=== PATIENT | male | born 1965 | race Caucasian/White ===

== ENCOUNTER 2019-10-10 08:59 | Day surgery (SDC) | payer OTHER ==
[~2019-10-10 08:59] MED LIST: Lactated Ringers 1,000 ML IV SCH; Lidocaine 1%/Sod Bicarbonate in NS 8.4% 1 ML Syringe IDERM PRN; Sodium Chloride 0.9% 10 ML Syringe FLUSH PRN
--- NOTE | 2019-10-10 09:29 | PCM.PREANE ---
Preanesthetic Assessment - Anesthesia/Transfusion/Family Hx Anesthesia History: Prior Anesthesia Without Reaction Family History of Anesthesia Reaction: No Transfusion History: No Prior Transfusion(s) - Review of Systems General: No Symptoms Pulmonary: No Symptoms Cardiovascular: No Symptoms Gastrointestinal: No Symptoms, Nausea Other: Reports: None - Physical Assessment NPO Status Date: 10/09/19 NPO Status Time: 22:00 ASA Class: 2 Mental Status: Alert & Oriented x3 Airway Class: Mallampati = 3 Dentition: Reports: Normal Dentition Thyro-Mental Finger Breadths: 3 Mouth Opening Finger Breadths: 2 ROM/Head Extension: Full Lungs: Clear to Auscultation, Normal Respiratory Effort Cardiovascular: Regular Rate, Regular Rhythm - Lab Values: Laboratory Last Values COVID-19 PCR Not detected (NOT DETECT) 10/08/19 10:00 - Allergies Allergies/Adverse Reactions: Allergies Allergy/AdvReac Type Severity Reaction Status Date / Time No Known Allergies Allergy Verified 10/09/19 14:22 - Acknowledgements Anesthesia Type Planned: MAC Pt an Appropriate Candidate for the Planned Anesthesia: Yes Alternatives and Risks of Anesthesia Discussed w Pt/Guardian: Yes Pt/Guardian Understands and Agrees with Anesthesia Plan: Yes PreAnesthesia Questionnaire HEENT History: Reports: Impaired Vision Cardiovascular History: Reports: High Cholesterol, Hypertension, SOB on Exertion Respiratory History: Reports: Sleep Apnea, Other (See Below) Other Respiratory History: not using cpap or bipap therapy at this time Gastrointestinal History: Reports: Cholelithiasis, Diverticulosis, GERD Genitourinary History: Reports: None [employer] History: Reports: None Musculoskeletal History: Reports: None Neurological History: Reports: None Psychiatric History: Reports: Depression Endocrine/Metabolic History: Reports: Diabetes, Type II, Hypothyroidism Hematologic History: Reports: None Immunologic History: Reports: None Oncologic (Cancer) History: Reports: None Dermatologic History: Reports: None - Past Surgical History Head Surgeries/Procedures: Reports: None HEENT Surgical History: Reports: Eye Surgery Cardiovascular Surgical History: Reports: None Respiratory Surgical History: Reports: None GI Surgical History: Reports: Other (See Below) Other GI Surgeries/Procedures: intestinal surgery Female Surgical History: Reports: None Male Surgical History: Reports: None Endocrine Surgical History: Reports: None Neurological Surgical History: Reports: None Musculoskeletal Surgical History: Reports: None Oncologic Surgical History: Reports: None Dermatological Surgical History: Reports: None - SUBSTANCE USE Smoking Status *Q: Current Every Day Smoker Days Per Week of Alcohol Use: 3 Number of Drinks Per Day: 4 Total Drinks Per Week: 12 Recreational Drug Use History: No - HOME MEDS Home Medications: Home Meds Aspirin [Aspir 81] 81 mg PO DAILY 10/09/19 [History] FLUoxetine [PROzac] 10 mg PO DAILY 10/09/19 [History] amLODIPine Besylate [Norvasc] 10 mg PO DAILY 10/09/19 [History] atorvaSTATin [Lipitor] 80 mg PO DAILY 10/09/19 [History] glipiZIDE [Glipizide Xl] 10 mg PO DAILY 10/09/19 [History] lisinopriL [Lisinopril] 20 mg PO DAILY 10/09/19 [History] metFORMIN [Glucophage] 1,000 mg PO DAILY 10/09/19 [History] - CURRENT (IN HOUSE) MEDS Current Meds: Current Medications Lactated Ringer's (Ringers, Lactated) 1,000 mls @ 125 mls/hr IV ASDIRECTED BELEN Stop: 10/10/19 23:00 Lidocaine/Sodium Bicarbonate (Buffered Lidocaine 1% In Ns 8.4%) 0.25 ml IDERM ONETIME PRN PRN Reason: Prior to IV Start Stop: 10/10/19 18:00 Sodium Chloride (Saline Flush) 10 ml FLUSH ASDIRECTED PRN PRN Reason: Keep Vein Open Stop: 10/10/19 18:00
[2019-10-10] MEDS ORDERED: Lidocaine 1% 4 ML ONE (10:10)
[2019-10-10] MEDS ORDERED: Propofol 200 MG/20 ML SDV ONE ×2 (10:10→10:23)
--- NOTE | 2019-10-10 10:53 | PCM.OPNOTE ---
- General Post-Op/Procedure Note Date of Surgery/Procedure: 10/10/19 Operative Procedure(s): colonoscopy Findings: 1. Cecal polyp 2. Transverse colon polyp x3 3. Descending colon polyp 4. Rectal polyp Pre Op Diagnosis: hematochezia Post-Op Diagnosis: same Anesthesia Technique: MAC Primary Surgeon: Shaneka Damico Anesthesia Provider: Shaniqua Kahn Pathology: 1. Cecal polyp 2. Transverse colon polyp x3 3. Descending colon polyp 4. Rectal polyp Fluid Replacement, Intraop: 700 Output, Urine Amount: 0 EBL in mLs: 0 Complications: none apparent Condition: Good
--- NOTE | 2019-10-10 10:54 | PCM.PRNOTE ---
- Free Text/Narrative Note: Operative Report Date of Surgery/Procedure: October 10, 2019 Operative Procedure: Colonoscopy to cecum with polypectomy Pre Op Diagnosis: Hematochezia Post-Op Diagnosis: Same Surgeon: Shaneka Damico MD Plating Technician: Shannan Jones [id number] Anesthesia Technique: MAC Anesthesia Provider: Shaniqua Kahn CRNA IV Fluid Replacement, Intraop: 700cc Output, Urine Amount: 0cc EBL : 0cc Findings: 1. Cecal polyp 2. Transverse colon polyp x3 3. Descending colon polyp 4. Rectal polyp Specimens: 1. Cecal polyp 2. Transverse colon polyp x3 3. Descending colon polyp 4. Rectal polyp Indication: The patient is a 54 year-old gentleman who presented to the outpatient clinic with findings of hematochezia. We discussed the procedure of a diagnostic colonoscopy including the polypectomy and biopsy. Risks of bleeding and perforation were discussed, the patient understood and wished to proceed. Written and consent was obtained Description of the procedure: The patient was brought to the endoscopy suite and placed in the left lateral decubitus position. Appropriate monitors were applied. The patient was given MAC anesthesia. An anorectal examination was performed, revealing no external abnormality. The scope was placed into the rectum and advanced to cecum with minimal difficulty requiring no additional maneuvers. The patients cecum was entered, and the ileocecal valve and appendiceal orifice were identified and normal. At this point, the scope was withdrawn, paying careful attention to the mucosa. The patient had good bowel prep, allowing for visualization of 85-90 % of the mucosa after washing and suctioning. A cecal polyp was noted measuring approximately 11 mm. It was semi-pedunculated. This was removed using a hot snare. In the transverse colon there was a meter semi-pedunculated polyp removed with a hot snare. There were 2 additional 3 to 4 mm flat polyps in the transverse colon that removed using a jumbo cold biopsy forceps. A 4 mm my pedunculated polyp was noted in the descending colon and removed with the hot snare. In the rectum, the scope was retroflexed and no abnormalities were noted, except for some hemorrhoidal tissue. The scope was placed back in the lumen and a pedunculated 3 mm polyp was seen in the rectum. This was removed using a jumbo biopsy forceps. The excess air was aspirated and the procedure was terminated. The patient tolerated the procedure well. Complications: none apparent Condition: Good, transported to PACU in stable condition Shaneka Damico MD General Surgery
--- NOTE | 2019-10-10 10:59 | PCM48HPAN ---
Post Anesthesia Note - EVALUATION WITHIN 48HRS OF ANESTHETIC Vital Signs in Normal Range: Yes Patient Participated in Evaluation: Yes Respiratory Function Stable: Yes Airway Patent: Yes Cardiovascular Function Stable: Yes Hydration Status Stable: Yes Pain Control Satisfactory: Yes Nausea and Vomiting Control Satisfactory: Yes Mental Status Recovered: Yes Vital Signs: Last Vital Signs Temp 36.3 C 10/10/19 09:00 Pulse 68 10/10/19 09:00 Resp 16 10/10/19 09:00 BP 142/88 H 10/10/19 09:00 Pulse Ox 95 10/10/19 09:00
== END 2019-10-10 11:28 | disposition home or self-care (01) ==
LOC: JD.SDS 08:59
PROVIDERS: ATTEND Surgery
DX: D12.0 Benign neoplasm of cecum (principal); D12.3 Benign neoplasm of transverse colon; K62.1 Rectal polyp; K64.8 Other hemorrhoids; Z11.59 Encounter for screening for other viral diseases; E11.9 Type 2 diabetes mellitus without complications; E78.5 Hyperlipidemia, unspecified; F17.200 Nicotine dependence, unspecified, uncomplicated; I10 Essential (primary) hypertension; E78.00 Pure hypercholesterolemia, unspecified; Z79.899 Other long term (current) drug therapy; Z79.82 Long term (current) use of aspirin
CPT/HCPCS: 45380; 45385; 82962; 87635; J2001; J2704; J7120; 00811; U0002

== ENCOUNTER 2019-10-10 22:31 | Inpatient (IN) | payer OTHER ==
[2019-10-10] MEDS ORDERED: Ondansetron 4 MG/2 ML SDV IVPUSH ONE (23:16)
[2019-10-10] MEDS ORDERED: HYDROmorphone 1 MG/ML Syringe IVPUSH ONE (23:16)
--- NOTE | 2019-10-10 23:16 | EDM.PDOC ---
ED HPI GENERAL MEDICAL PROBLEM - General Chief Complaint: Abdominal Pain Stated Complaint: RIGHT SIDE PAIN-HAD A COLONOSCOPY TODAY Time Seen by Provider: 10/10/19 23:09 Source of Information: Reports: Patient History Limitations: Reports: No Limitations - History of Present Illness INITIAL COMMENTS - FREE TEXT/NARRATIVE: 54-year-old male presents to the ED for evaluation of right kimberly-abdominal pain primarily right lower quadrant abdominal pain that started about 1400 hrs. today. He states it is gradually increased in intensity over the last 8 hours. Of note the patient had a colonoscopy earlier this morning in our hospital per Dr. Miller. He believes ,he was told that she removed 1 or 2 polyps or did some biopsies. He feels slightly bloated and distended. He did pass a lot of gas per rectum initially after getting home around noon. He did have a lot of food at noon as he was starving after he was kept n.p.o. overnightand had bowel cleanse prep yesterday. He has had previous colon surgery? about 10 years ago spending 2 months in hospital. He apparently did have a 6 inch piece of colon removed to his knowledge and then developed secondary infection or breakdown of the anastomosis. He spent 1 month in the hospital initially but came back the following day with abdominal pain and spent another month in hospital. This was in [place].At present abdominal pain is much worse with coughing ,sneezing or walking. He admits that he is walking slow and stooped over like an appendicitis patient. Onset: Today Onset Date: 10/10/19 Onset Time: 14:00 Duration: Hour(s):, Constant, Getting Worse Location: Reports: Abdomen (Right lower quadrant of the abdomen rating up towards the right costal margin. No pain in his back.) Quality: Reports: Ache Severity: Moderate (Rates his pain is 7 or 8 out of 10. 4 out of 10 if he is lying still.) Improves with: Reports: Rest Worsens with: Reports: Other Context: Reports: Other (Presents to the ED 19 hours post colonoscopy). Denies: Activity (Meant coughing sneezing or laughing makes the pain worse), Exercise, Lifting, Sick Contact Associated Symptoms: Reports: No Other Symptoms, Loss of Appetite (And eat any supper.). Denies: Confusion, Chest Pain, Cough, cough w sputum, Headaches, Malaise Treatments TIMBER SELECTOR: Reports: Other (see below) (None.) Right Lower Abdomen Pain Score (Numeric/FACES): 8 - Related Data Allergies Allergy/AdvReac Type Severity Reaction Status Date / Time No Known Allergies Allergy Verified 10/09/19 14:22 Home Meds: Home Meds Aspirin [Aspir 81] 81 mg PO DAILY 10/09/19 [History] FLUoxetine [PROzac] 10 mg PO DAILY 10/09/19 [History] amLODIPine Besylate [Norvasc] 10 mg PO DAILY 10/09/19 [History] atorvaSTATin [Lipitor] 80 mg PO DAILY 10/09/19 [History] glipiZIDE [Glipizide Xl] 10 mg PO DAILY 10/09/19 [History] lisinopriL [Lisinopril] 20 mg PO DAILY 10/09/19 [History] metFORMIN [Glucophage] 1,000 mg PO DAILY 10/09/19 [History] Past Medical History HEENT History: Reports: Impaired Vision Cardiovascular History: Reports: High Cholesterol, Hypertension, SOB on Exertion Respiratory History: Reports: Sleep Apnea, Other (See Below) Other Respiratory History: not using cpap or bipap therapy at this time Gastrointestinal History: Reports: Cholelithiasis, Diverticulosis, GERD Genitourinary History: Reports: None 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: Reports: None Musculoskeletal History: Reports: None Neurological History: Reports: None Psychiatric History: Reports: Depression Endocrine/Metabolic History: Reports: Diabetes, Type II (Trolled with metformin and glipizide daily.), Hypothyroidism Hematologic History: Reports: None Immunologic History: Reports: None Oncologic (Cancer) History: Reports: None Dermatologic History: Reports: None - Past Surgical History Head Surgeries/Procedures: Reports: None HEENT Surgical History: Reports: Eye Surgery Cardiovascular Surgical History: Reports: None Respiratory Surgical History: Reports: None GI Surgical History: Reports: Other (See Below) Other GI Surgeries/Procedures: intestinal surgery--he states it was for colon surgery but unclear if he meant small bowel surgery. Male Surgical History: Reports: None Endocrine Surgical History: Reports: None Neurological Surgical History: Reports: None Musculoskeletal Surgical History: Reports: None Oncologic Surgical History: Reports: None Dermatological Surgical History: Reports: None Social & Family History - Tobacco Use Smoking Status *Q: Never Smoker - Caffeine Use Caffeine Use: Reports: Soda - Living Situation & Occupation Living situation: Reports: Single Occupation: Employed (Works in [employer] ED ROS GENERAL - Review of Systems Review Of Systems: See Below Constitutional: Reports: Decreased Appetite (Mild since the pain came on.). Denies: Fever, Chills, Malaise, Weakness, Fatigue, Weight Loss HEENT: Reports: Glasses Respiratory: Denies: Shortness of Breath, Wheezing, Pleuritic Chest Pain Cardiovascular: Reports: Blood Pressure Problem. Denies: Claudication, Dyspnea on Exertion, Edema, Lightheadedness, Orthopnea ED EXAM, GI/ABD - Physical Exam Exam: See Below Exam Limited By: No Limitations General Appearance: Alert, WD/WN, No Apparent Distress, Other (Temperature is 36.3 heart rate is 85 and sinus respiratory to 16 BP 184 108. Pulse ox 98% on room air.) Eyes: Bilateral: Normal Appearance (No blepharal pallor or scleral icterus.) Throat/Mouth: Normal Inspection, Normal Lips, Normal Oropharynx Head: Atraumatic, Normocephalic Neck: Normal Inspection, Supple, Non-Tender, Full Range of Motion. No: Carotid Bruit, Lymphadenopathy (L), Lymphadenopathy (R), Thyromegaly Respiratory/Chest: No Respiratory Distress, Lungs Clear, Normal Breath Sounds, No Accessory Muscle Use Cardiovascular: Normal Peripheral Pulses, Regular Rate, Rhythm, No Edema, No Gallop, No Murmur, No Rub GI/Abdominal Exam: Normal Bowel Sounds, Soft, Guarding ( This is over McBurney's point primarily.), Rebound, Tender (Very tender right lower quadrant abdomen with guarding and rebound with peritoneal signs.), Other (Old midline infraumbilical vertical incision). No: Non-Tender, Abnormal Bowel Sounds (Right lower quadrant of the abdomen.), Hernia (Male) Exam: No Hernia Back Exam: Normal Inspection. No: CVA Tenderness (L), CVA Tenderness (R) Extremities: Normal Inspection, Normal Range of Motion, Non-Tender, No Pedal Edema Neurological: Alert, Oriented, CN II-XII Intact, Normal Cognition Psychiatric: Normal Affect, Normal Mood Skin Exam: Warm, Dry, Intact, Normal Color, No Rash Course - Vital Signs Last Recorded V/S: Last Vital Signs Temp 36.3 C 10/10/19 22:50 Pulse 85 10/10/19 22:50 Resp 16 10/10/19 22:50 BP 184/108 H 10/10/19 22:50 Pulse Ox 98 10/10/19 22:50 - Orders/Labs/Meds Orders: Active Orders 24 hr Category Date Time Status Patient Status [ADT] Routine ADT 10/11/19 06:36 Active Abdomen Pelvis w Cont [CT] Stat Exams 10/10/19 23:10 Taken CORONAVIRUS COVID-19 RAPID [MOLEC] Stat Lab 10/11/19 06:21 Received Lactated Ringers [Ringers, Lactated] 1,000 ml Med 10/10/19 23:15 Active IV ASDIRECTED Medication Orders Lactated Ringer's (Ringers, Lactated) 1,000 mls @ 125 mls/hr IV ASDIRECTED BELEN Last Admin: 10/10/19 23:22 Dose: 125 mls/hr Documented by: KEVIN Labs: Laboratory Tests 10/10/19 10/10/19 10/11/19 Range/Units 23:20 23:20 05:30 WBC 13.92 H 15.32 H (4.23-9.07) K/mm3 RBC 5.23 4.84 (4.63-6.08) M/mm3 Hgb 16.6 15.4 (13.7-17.5) gm/dl Hct 47.5 44.2 (40.1-51.0) % MCV 90.8 91.3 (79.0-92.2) fl MCH 31.7 31.8 (25.7-32.2) pg MCHC 34.9 34.8 (32.2-35.5) g/dl RDW Std Deviation 42.7 43.2 (35.1-43.9) fL Plt Count 323 300 (163-337) K/mm3 MPV 9.9 10.1 (9.4-12.3) fl Neutrophils % (Manual) 80 H 71 H (40-60) % Band Neutrophils % 3 6 (0-10) % Lymphocytes % (Manual) 11 L 13 L (20-40) % Atypical Lymphs % 0 0 % Monocytes % (Manual) 5 9 (2-10) % Eosinophils % (Manual) 1 0 L (0.8-7.0) % Basophils % (Manual) 0 L 1 (0.2-1.2) Platelet Estimate Adequate Adequate Plt Morphology Comment Normal Normal RBC Morph Comment Normal Normal Sodium 137 (136-145) mEq/L Potassium 3.7 (3.5-5.1) mEq/L Chloride 100 (98-107) mEq/L Carbon Dioxide 31 (21-32) mEq/L Anion Gap 9.7 (5-15) BUN 12 (7-18) mg/dL Creatinine 1.2 (0.7-1.3) mg/dL Est Cr Clr Drug Dosing TNP Estimated GFR (MDRD) > 60 (>60) mL/min BUN/Creatinine Ratio 10.0 L (14-18) Glucose 332 H (74-106) mg/dL Calcium 8.6 (8.5-10.1) mg/dL Total Bilirubin 0.4 (0.2-1.0) mg/dL AST 11 L (15-37) U/L ALT 29 (16-63) U/L Alkaline Phosphatase 107 (46-116) U/L C-Reactive Protein 0.8 (<1.0) mg/dL Total Protein 7.4 (6.4-8.2) g/dl Albumin 3.6 (3.4-5.0) g/dl Globulin 3.8 gm/dL Albumin/Globulin Ratio 1.0 (1-2) Lipase 175 (73-393) U/L 07/30/20 Range/Units 05:30 WBC (4.23-9.07) K/mm3 RBC (4.63-6.08) M/mm3 Hgb (13.7-17.5) gm/dl Hct (40.1-51.0) % MCV (79.0-92.2) fl MCH (25.7-32.2) pg MCHC (32.2-35.5) g/dl RDW Std Deviation (35.1-43.9) fL Plt Count (163-337) K/mm3 MPV (9.4-12.3) fl Neutrophils % (Manual) (40-60) % Band Neutrophils % (0-10) % Lymphocytes % (Manual) (20-40) % Atypical Lymphs % % Monocytes % (Manual) (2-10) % Eosinophils % (Manual) (0.8-7.0) % Basophils % (Manual) (0.2-1.2) Platelet Estimate Plt Morphology Comment RBC Morph Comment Sodium (136-145) mEq/L Potassium (3.5-5.1) mEq/L Chloride (98-107) mEq/L Carbon Dioxide (21-32) mEq/L Anion Gap (5-15) BUN (7-18) mg/dL Creatinine (0.7-1.3) mg/dL Est Cr Clr Drug Dosing Estimated GFR (MDRD) (>60) mL/min BUN/Creatinine Ratio (14-18) Glucose (74-106) mg/dL Calcium (8.5-10.1) mg/dL Total Bilirubin (0.2-1.0) mg/dL AST (15-37) U/L ALT (16-63) U/L Alkaline Phosphatase (46-116) U/L C-Reactive Protein 3.6 H* (<1.0) mg/dL Total Protein (6.4-8.2) g/dl Albumin (3.4-5.0) g/dl Globulin gm/dL Albumin/Globulin Ratio (1-2) Lipase (73-393) U/L Meds: Medications Generic Name Dose Route Start Last Admin Trade Name Freq PRN Reason Stop Dose Admin Lactated Ringer's 1,000 mls @ 125 mls/hr 10/10/19 23:15 10/10/19 23:22 Ringers, Lactated IV 125 mls/hr ASDIRECTED BELEN Administration Discontinued Medications Generic Name Dose Route Start Last Admin Trade Name Breezyq PRN Reason Stop Dose Admin Hydromorphone HCl 1 mg 10/10/19 23:16 10/10/19 23:25 Dilaudid IVPUSH 10/10/19 23:17 1 mg ONETIME ONE Administration Hydromorphone HCl 1 mg 10/11/19 01:38 10/11/19 01:56 Dilaudid IVPUSH 10/11/19 01:39 1 mg ONETIME ONE Administration Hydromorphone HCl 1 mg 10/11/19 06:27 Dilaudid IVPUSH 10/11/19 06:28 ONETIME ONE Ertapenem 1 gm/ Sodium 50 mls @ 100 mls/hr 10/11/19 01:40 10/11/19 01:53 Chloride IV 10/11/19 02:09 100 mls/hr ONETIME ONE Administration Lorazepam 0.5 mg 10/11/19 01:38 10/11/19 01:54 Ativan IVPUSH 10/11/19 01:39 0.5 mg ONETIME ONE Administration Ondansetron HCl 4 mg 10/10/19 23:16 10/10/19 23:24 Zofran IVPUSH 10/10/19 23:17 4 mg ONETIME ONE Administration Ondansetron HCl 4 mg 10/11/19 06:27 Zofran IVPUSH 10/11/19 06:28 ONETIME ONE - Radiology Interpretation Free Text/Narrative:: 54-year-old male presents to the ED approximate 19 hours after having colonoscopy this morning. He states he was discharged about noon and went home and did eat a large meal of corn dog hotdogs and other foods. He was starving since he was kept n.p.o. and after bowel cleanse yesterday. About 1400 hrs. he started to develop diffuse right lower quadrant abdominal pain which has progressed in intensity over the last 8 to 10 hours. Pain is worsened by movement coughing laughing and sneezing. He reports he is walking hunched over and slowly due to the pain. He was able to place his lap belt on his across his abdomen in route to the hospital. Of note patient does not feel he is passing any flatus for the last 8 or 10 hours. Previous laparotomy for he reports a: Obstruction or infection. Apparently had 6.0 inches of bowel removed and was hospitalized for over a month. Discharged within 2 days he was back and hospitalized for another month due to infection. He is not sure if he had a small or large bowel obstruction. Of note he has had no previous abdominal surgeries. He denies any fever or chills. He is reports he still has a mild appetite. He has not eaten since noon however. Examination reveals suspect peritonitis right lower quadrant of the abdomen with guarding throughout the right kimberly-abdomen. Plan CT of the abdomen will be performed with IV and oral contrast. Routine labs. He is to be kept n.p.o. CBC with differential to be done with CMP and CRP and serum lipase. IV will be lactated Ringer's at 150 mils per hour - Re-Assessments/Exams Free Text/Narrative Re-Assessment/Exam: 10/11/19 01:14 Count is elevated at 13.92 with 80% neutrophils and 3% bands appreciated. Hemoglobin is 16.6 with a hematocrit of 47.5. Platelet count is 323,000. Sodium is 137 with a potassium of 3.7. Chloride 100 with a bicarb of 31. Anion gap is 9.7. BUN is 12 with a creatinine of 1.2. GFR is greater than 60. Glucose is 332 of note patient is a type II diabetic. Calcium is 8.6. Liver function is normal. C-reactive protein 0.8. Total protein 7.4 with an albumin fraction of 3.[address] of the abdomen has been completed with oral and IV contrast. Visualized portions of the lungs appear normal. No cardiomegaly appreciated. There is no obvious free air on my examination. Li viola appears homogeneous and normal. Gallbladder contains a few calcified gallstones in the fundus of the gallbladder. Pancreas appears normal spleen appears normal stomach appears normal with a small hiatal hernia. Kidneys are normal with no obstruction of the ureters. Adrenal glands normal. The small bowel contains a few air-fluid levels in the upper abdomen. Their is a fair amount of stool throughout the right hemicolon and portions of the transverse colon. The appendix is visualized and is enlarged and elongated with I suspect verey subtle early silviano appendyceal inflammation silviano appendyceal inflammation to suggest developing appendicitis. Bladder appears to be filling adequately and normally. Prostate appears to be within normal limits for his age. Will await Vrad report. 10/11/19 01:22 Vrad over read of the abdominal and pelvic CT reveals the suspect cholelithiasis as indicated above. They too ,did not identify any free air. They feel the appendix is normal in the right lower quadrant and they appreciate extensive colonic diverticulosis but no signs of acute diverticulitis or appendicitis on their reading. 10/11/19 01:26: On reexamination patient still has an acute abdomen localizing to McBurney's point. Sounds are present and he appreciates that he has passed some flatus. Clinically he appears to be suffering from acute appendicitis. He is mildly tender in the right upper quadrant but maximal point of tenderness with peritoneal signs is in the right lower quadrant. He has associated guarding right lower quadrant and rebound tenderness I am going to get him a treatment with Invanz 1 g IV now. Plan will be to have repeat labs in 5 hours time with repeat imaging if deemed necessary. Surgical consult will be obtained at 0600 hrs. Medically the patient feels warm to palpation and I suspect he is developing a fever. Reports pain is constant worsened by deep breathing and coughing. Appreciates passage of flatus since arrival in the ED. Currently rates his pain as 4-5 out of 10 at rest. Plan :Repeat temperature. Will repeat his Dilaudid 1 mg IV and Ativan 0.5 mg IV so that he might get some rest. 10/11/19 01:50: Repeat temperature was reported to be 98.9. 10/11/19 04:48 seems staff reports that he has been dozing off and on. He woke and was feeling quite hot and nurses therefore got him a fan. The room that he is in is actually quite warm. Signs remained stable. Sats are 94 to 96% room air. 10/11/19 05:36 [address] did speak with Dr. Vela- on-call surgeon and he will see the patient in the ED when he comes in for appendectomy on another patient at 0600 hrs. 10/11/19 06:10: Dr Vela has seen the patient in consultation. He is going to admit the patient to the hospital at this time. 10/11/19 06:20: On my reassessment the patient has continued peritoneal signs in the right lower quadrant compel with the patient acute appendicitis. Patient reports that the pain is constant and worsens with any movement at all. He re ports if he holds really still the pain is not too bad. Mild associated nausea. Plan will repeat Dilaudid 1 mg IV with Zofran 4 mg IV as well. P labs were drawn around 0530 hrs. but are not yet available. 10/11/19 06:40 Repeat labs reveal an increase in leukocyte count to 15.32 with 71% neutrophils and 6% bands cells. Hemoglobin is 15.4 with a hematocrit of 44.2 which is a slight decrease from initial labs. This is likely secondary to IV fluid dilution. CRP has gone up from 0.8-3.6 at this time. Departure - Departure Time of Disposition: 06:41 Disposition: Refer to Observation Condition: Fair Clinical Impression: Cholelithiasis Abdominal pain Qualifiers: Abdominal location: right lower quadrant Qualified Code(s): R10.31 - Right lower quadrant pain Acute appendicitis Qualifiers: Acute appendicitis type: with localized peritonitis Appendicitis gangrene presence: without gangrene Appendicitis perforation presence: without perforation Appendicitis abscess presence: without abscess Qualified Code(s): K35.30 - Acute appendicitis with localized peritonitis, without perforation or gangrene - Discharge Information *PRESCRIPTION DRUG MONITORING PROGRAM REVIEWED*: Not Applicable *COPY OF PRESCRIPTION DRUG MONITORING REPORT IN PATIENT [place]: Not Applicable Referrals: Shaneka Damico MD [Physician] - Forms: ED Department Discharge Sepsis Event Note (ED) - Evaluation Sepsis Screening Result: No Definite Risk - Focused Exam Vital Signs: Vital Signs Temp Pulse Resp BP Pulse Ox 10/10/19 22:50 36.3 C 85 16 184/108 H 98 - My Orders Last 24 Hours: My Active Orders 10/10/19 23:10 Abdomen Pelvis w Cont [CT] Stat 10/10/19 23:15 Lactated Ringers [Ringers, Lactated] 1,000 ml IV ASDIRECTED 10/11/19 06:21 CORONAVIRUS COVID-19 RAPID [MOLEC] Stat 10/11/19 06:36 Patient Status [ADT] Routine - Assessment/Plan Last 24 Hours: My Active Orders 10/10/19 23:10 Abdomen Pelvis w Cont [CT] Stat 10/10/19 23:15 Lactated Ringers [Ringers, Lactated] 1,000 ml IV ASDIRECTED 10/11/19 06:21 CORONAVIRUS COVID-19 RAPID [MOLEC] Stat 10/11/19 06:36 Patient Status [ADT] Routine
[2019-10-10] MEDS: Lactated Ringers 1,000 ML IV SCH (23:22)
[2019-10-11] MEDS ORDERED: HYDROmorphone 1 MG/ML Syringe IVPUSH ONE ×2 (01:38→06:27)
[2019-10-11] MEDS ORDERED: LORazepam 2 MG/ML SDV IVPUSH ONE (01:38)
[2019-10-11] MEDS ORDERED: Ertapenem 1 GM in Sodium Chloride 0.9% 50 ML IV ONE (01:40)
[2019-10-11] MEDS ORDERED: Ondansetron 4 MG/2 ML SDV IVPUSH ONE (06:27)
--- NOTE | 2019-10-11 06:39 | PCM.HP.2 ---
H&P History of Present Illness - General Date of Service: 10/11/19 Source of Information: Patient History Limitations: Reports: No Limitations - History of Present Illness Initial Comments - Free Text/Narative: patient had a colonoscopy yesterday by Dr. Pollack. He reports that he had polypectomy. He started having right sided abdominal pain around 2 pm. pain was sharp, localized in thr RLQ, worse with mobility, no fevers, no nausea or vomiting. Since the pain was worsening, he presented to the ED. In the ED, WBC was 15, CT was done that appears normal but on my review there may be mild stranding at the proximal ascending colon. Onset of Symptoms: Reports: Gradual Duration of Symptoms: Reports: Hour(s): (166), Getting Worse Location: Reports: Abdomen (RLQ) Quality: Reports: Sharp Severity: Severe Improves with: Reports: Immobilization Worsens with: Reports: Movement Associated Symptoms: Reports: No Other Symptoms Right Lower Abdomen Pain Score (Numeric/FACES): 8 - Related Data Allergies/Adverse Reactions: Allergies Allergy/AdvReac Type Severity Reaction Status Date / Time No Known Allergies Allergy Verified 10/09/19 14:22 Home Medications: Home Meds Aspirin [Aspir 81] 81 mg PO DAILY 10/09/19 [History] FLUoxetine [PROzac] 10 mg PO DAILY 10/09/19 [History] amLODIPine Besylate [Norvasc] 10 mg PO DAILY 10/09/19 [History] atorvaSTATin [Lipitor] 80 mg PO DAILY 10/09/19 [History] glipiZIDE [Glipizide Xl] 10 mg PO DAILY 10/09/19 [History] lisinopriL [Lisinopril] 20 mg PO DAILY 10/09/19 [History] metFORMIN [Glucophage] 1,000 mg PO DAILY 10/09/19 [History] Past Medical History HEENT History: Reports: Impaired Vision Cardiovascular History: Reports: High Cholesterol, Hypertension, SOB on Exertion Respiratory History: Reports: Sleep Apnea, Other (See Below) Other Respiratory History: not using cpap or bipap therapy at this time Gastrointestinal History: Reports: Cholelithiasis, Diverticulosis, GERD Genitourinary History: Reports: None [employer] History: Reports: None Musculoskeletal History: Reports: None Neurological History: Reports: None Psychiatric History: Reports: Depression Endocrine/Metabolic History: Reports: Diabetes, Type II (Trolled with metformin and glipizide daily.), Hypothyroidism Hematologic History: Reports: None Immunologic History: Reports: None Oncologic (Cancer) History: Reports: None Dermatologic History: Reports: None - Past Surgical History Head Surgeries/Procedures: Reports: None HEENT Surgical History: Reports: Eye Surgery Cardiovascular Surgical History: Reports: None Respiratory Surgical History: Reports: None GI Surgical History: Reports: Other (See Below) Other GI Surgeries/Procedures: intestinal surgery--he states it was for colon surgery but unclear if he meant small bowel surgery. Male Surgical History: Reports: None Endocrine Surgical History: Reports: None Neurological Surgical History: Reports: None Musculoskeletal Surgical History: Reports: None Oncologic Surgical History: Reports: None Dermatological Surgical History: Reports: None Social & Family History - Tobacco Use Smoking Status *Q: Never Smoker - Caffeine Use Caffeine Use: Reports: Soda - Living Situation & Occupation Living situation: Reports: Single Occupation: Employed (Works in [employer] H&P Review of Systems - Review of Systems: Review Of Systems: See Below General: Reports: No Symptoms HEENT: Reports: No Symptoms Pulmonary: Reports: No Symptoms Cardiovascular: Reports: No Symptoms Gastrointestinal: Reports: Abdominal Pain (RLQ) Genitourinary: Reports: No Symptoms Musculoskeletal: Reports: No Symptoms Skin: Reports: No Symptoms Psychiatric: Reports: No Symptoms Exam - Exam Exam: See Below - Vital Signs Vital Signs: Last Vital Signs Temp 97.4 F 10/10/19 22:50 Pulse 85 10/10/19 22:50 Resp 16 10/10/19 22:50 BP 184/108 H 10/10/19 22:50 Pulse Ox 98 10/10/19 22:50 - Exam General: Alert, Oriented, Cooperative Lungs: Clear to Auscultation, Normal Respiratory Effort Cardiovascular: Regular Rate, Regular Rhythm, Normal S1, Normal S2 GI/Abdominal Exam: Soft, No Organomegaly, No Distention, No Mass, Tender (RLQ with focal rebound tenderness) - Patient Data Lab Results Last 24 hrs: Laboratory Results - last 24 hr 10/10/19 10/10/19 10/11/19 Range/Units 23:20 23:20 05:30 WBC 13.92 H 15.32 H (4.23-9.07) K/mm3 RBC 5.23 4.84 (4.63-6.08) M/mm3 Hgb 16.6 15.4 (13.7-17.5) gm/dl Hct 47.5 44.2 (40.1-51.0) % MCV 90.8 91.3 (79.0-92.2) fl MCH 31.7 31.8 (25.7-32.2) pg MCHC 34.9 34.8 (32.2-35.5) g/dl RDW Std Deviation 42.7 43.2 (35.1-43.9) fL Plt Count 323 300 (163-337) K/mm3 MPV 9.9 10.1 (9.4-12.3) fl Neutrophils % (Manual) 80 H 71 H (40-60) % Band Neutrophils % 3 6 (0-10) % Lymphocytes % (Manual) 11 L 13 L (20-40) % Atypical Lymphs % 0 0 % Monocytes % (Manual) 5 9 (2-10) % Eosinophils % (Manual) 1 0 L (0.8-7.0) % Basophils % (Manual) 0 L 1 (0.2-1.2) Platelet Estimate Adequate Adequate Plt Morphology Comment Normal Normal RBC Morph Comment Normal Normal Sodium 137 (136-145) mEq/L Potassium 3.7 (3.5-5.1) mEq/L Chloride 100 (98-107) mEq/L Carbon Dioxide 31 (21-32) mEq/L Anion Gap 9.7 (5-15) BUN 12 (7-18) mg/dL Creatinine 1.2 (0.7-1.3) mg/dL Est Cr Clr Drug Dosing TNP Estimated GFR (MDRD) > 60 (>60) mL/min BUN/Creatinine Ratio 10.0 L (14-18) Glucose 332 H (74-106) mg/dL Calcium 8.6 (8.5-10.1) mg/dL Total Bilirubin 0.4 (0.2-1.0) mg/dL AST 11 L (15-37) U/L ALT 29 (16-63) U/L Alkaline Phosphatase 107 (46-116) U/L C-Reactive Protein 0.8 (<1.0) mg/dL Total Protein 7.4 (6.4-8.2) g/dl Albumin 3.6 (3.4-5.0) g/dl Globulin 3.8 gm/dL Albumin/Globulin Ratio 1.0 (1-2) Lipase 175 (73-393) U/L 10/11/19 Range/Units 05:30 WBC (4.23-9.07) K/mm3 RBC (4.63-6.08) M/mm3 Hgb (13.7-17.5) gm/dl Hct (40.1-51.0) % MCV (79.0-92.2) fl MCH (25.7-32.2) pg MCHC (32.2-35.5) g/dl RDW Std Deviation (35.1-43.9) fL Plt Count (163-337) K/mm3 MPV (9.4-12.3) fl Neutrophils % (Manual) (40-60) % Band Neutrophils % (0-10) % Lymphocytes % (Manual) (20-40) % Atypical Lymphs % % Monocytes % (Manual) (2-10) % Eosinophils % (Manual) (0.8-7.0) % Basophils % (Manual) (0.2-1.2) Platelet Estimate Plt Morphology Comment RBC Morph Comment Sodium (136-145) mEq/L Potassium (3.5-5.1) mEq/L Chloride (98-107) mEq/L Carbon Dioxide (21-32) mEq/L Anion Gap (5-15) BUN (7-18) mg/dL Creatinine (0.7-1.3) mg/dL Est Cr Clr Drug Dosing Estimated GFR (MDRD) (>60) mL/min BUN/Creatinine Ratio (14-18) Glucose (74-106) mg/dL Calcium (8.5-10.1) mg/dL Total Bilirubin (0.2-1.0) mg/dL AST (15-37) U/L ALT (16-63) U/L Alkaline Phosphatase (46-116) U/L C-Reactive Protein 3.6 H* (<1.0) mg/dL Total Protein (6.4-8.2) g/dl Albumin (3.4-5.0) g/dl Globulin gm/dL Albumin/Globulin Ratio (1-2) Lipase (73-393) U/L Result Diagrams: 10/11/19 05:30 10/10/19 23:20 Sepsis Event Note - Evaluation Sepsis Screening Result: No Definite Risk - Focused Exam Vital Signs: Vital Signs Temp Pulse Resp BP Pulse Ox 10/10/19 22:50 97.4 F 85 16 184/108 H 98 Date Exam was Performed: 10/11/19 Time Exam was Performed: 06:34 Problem List Initiated/Reviewed/Updated: No Orders Last 24hrs: Active Orders 24 hr Category Date Time Status Abdomen Pelvis w Cont [CT] Stat Exams 10/10/19 23:10 Taken CORONAVIRUS COVID-19 PCR PHL Stat Lab 10/11/19 06:31 Ordered Lactated Ringers [Ringers, Lactated] 1,000 ml Med 10/10/19 23:15 Active IV ASDIRECTED Medication Orders Lactated Ringer's (Ringers, Lactated) 1,000 mls @ 125 mls/hr IV ASDIRECTED BELEN Last Admin: 10/10/19 23:22 Dose: 125 mls/hr Documented by: KEVIN Assessment/Plan Comment:: patient has focal RLQ pain post colonoscopy. No evidence of perforation on CT scan. 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 Will admit for bowel rest, IV hydration and IV abx and follow him clinically. Plan - Admit to med/surg with telemetry - NPO with meds, IVF - Abx will be IV Levo/flagyl - monitor abdominal exams - Daily CBCs and Chem
[2019-10-11] MEDS ORDERED: Ondansetron 4 MG Tab.DIS PO PRN (07:50)
[2019-10-11] MEDS: Heparin Sodium 5,000 Units/ML Vial SUBCUT SCH ×2 (08:58→16:00)
[2019-10-11] MEDS ORDERED: glipiZIDE 5 MG Tab.ER PO SCH (12:00)
[2019-10-11] MEDS: Lactated Ringers 1,000 ML IV SCH ×2 (12:30→21:09)
[2019-10-11] MEDS: HYDROmorphone 0.5 MG/0.5 ML Syringe IVPUSH PRN ×3 (12:34→19:46)
[2019-10-11] MEDS: Rosuvastatin 10 MG Tab PO SCH (12:35)
[2019-10-11] MEDS: Cholecalciferol (Vitamin D3) 25 MCG Tab PO SCH (12:35)
[2019-10-11] MEDS: Lisinopril 20 MG Tab PO SCH (12:36)
[2019-10-11] MEDS: Aspirin 81 MG Tab.EC PO SCH (12:36)
[2019-10-11] MEDS: amLODIPine 10 MG Tab PO SCH (12:37)
--- NOTE | 2019-10-11 15:33 | CT ---
CT abdomen and pelvis Technique: Multiple axial sections were obtained from above the dome of the diaphragm inferiorly through the pubic symphysis. Intravenous and oral contrast was utilized. Delayed images were also obtained through the bladder. Findings: Visualized lung bases show nothing acute. Liver shows fatty infiltration without focal abnormality. Spleen appears within normal limits. Adrenal glands show no nodule. Pancreas appears within normal limits. Gallbladder contains several small gallstones. Kidneys show symmetric contrast enhancement without hydronephrosis or mass. Delayed images show contrast within the distal ureters and within the bladder. Atherosclerotic calcification is seen within the aorta and iliac vessels. No aneurysm is seen. No retroperitoneal adenopathy or mesenteric abnormalities are seen. Appendix is seen which is normal. No pelvic mass or adenopathy is appreciated. Bone window settings were reviewed which show a compression deformity within L1 which is most likely old. Scattered degenerative change within the spine is seen. No acute osseous finding is appreciated. Small fat-containing umbilical hernia is noted. Minimal sigmoid diverticuli as well as descending colon diverticuli are seen without diverticulitis. Impression: 1. Findings as described above believed to be nonacute. Diagnostic code #2 This report was dictated in MDT I agree with preliminary report from [facility], finalized on 10/11/19, 2:18 AM Central Daylight Time
[2019-10-11] MEDS: Levofloxacin/Dextrose 5%-Water 500 MG in Premix Bag 1 BAG IV SCH (21:01)
[2019-10-11] MEDS: metroNIDAZOLE/Normal Saline 500 MG in Premix Bag 1 BAG IV SCH (21:01)
[2019-10-12] MEDS: Heparin Sodium 5,000 Units/ML Vial SUBCUT SCH ×3 (00:51→15:30)
[2019-10-12] MEDS: metroNIDAZOLE/Normal Saline 500 MG in Premix Bag 1 BAG IV SCH ×3 (05:54→21:38)
[2019-10-12] MEDS: Docusate Sodium 100 MG Cap PO PRN ×2 (05:55→06:13)
[2019-10-12] MEDS: Lactated Ringers 1,000 ML IV SCH ×2 (05:56→14:27)
[2019-10-12] MEDS: Cholecalciferol (Vitamin D3) 25 MCG Tab PO SCH (08:51)
[2019-10-12] MEDS: Aspirin 81 MG Tab.EC PO SCH (08:52)
[2019-10-12] MEDS: amLODIPine 10 MG Tab PO SCH (08:52)
[2019-10-12] MEDS: Rosuvastatin 10 MG Tab PO SCH (08:52)
[2019-10-12] MEDS: Lisinopril 20 MG Tab PO SCH (08:52)
[2019-10-12] MEDS ORDERED: glipiZIDE 5 MG Tab.ER PO SCH ×2 (09:00)
--- NOTE | 2019-10-12 12:30 | PCM.PN ---
- General Info Date of Service: 10/12/19 Admission Dx/Problem (Free Text): Post-polypectomy syndrome Subjective Update: patient has no nausea but his right sided abdominal pain is still significant. Tolerating sips of water Functional Status: Reports: Pain Controlled Pain Score: 3 - Review of Systems General: Reports: No Symptoms HEENT: Reports: No Symptoms Pulmonary: Reports: No Symptoms Cardiovascular: Reports: No Symptoms Gastrointestinal: Reports: Abdominal Pain Genitourinary: Reports: No Symptoms Musculoskeletal: Reports: No Symptoms Skin: Reports: No Symptoms Neurological: Reports: No Symptoms - Patient Data Vitals - Most Recent: Last Vital Signs Temp 98.2 F 10/12/19 11:37 Pulse 72 10/12/19 11:37 Resp 20 10/12/19 11:37 BP 135/94 H 10/12/19 11:37 Pulse Ox 95 10/12/19 11:37 Weight - Most Recent: 101.333 kg I&O - Last 24 Hours: Intake & Output 10/11/19 10/12/19 10/12/19 22:59 06:59 14:59 Intake Total 576 0 Output Total 900 Balance 576 -900 Lab Results Last 24 Hours: Laboratory Results - last 24 hr 10/11/19 10/11/19 10/12/19 Range/Units 16:49 21:21 05:59 WBC (4.23-9.07) K/mm3 RBC (4.63-6.08) M/mm3 Hgb (13.7-17.5) gm/dl Hct (40.1-51.0) % MCV (79.0-92.2) fl MCH (25.7-32.2) pg MCHC (32.2-35.5) g/dl RDW Std Deviation (35.1-43.9) fL Plt Count (163-337) K/mm3 MPV (9.4-12.3) fl Neut % (Auto) (34.0-67.9) % Lymph % (Auto) (21.8-53.1) % [place] % (Auto) (5.3-12.2) % Eos % (Auto) (0.8-7.0) Baso % (Auto) (0.1-1.2) % Neut # (Auto) (1.78-5.38) K/mm3 Lymph # (Auto) (1.32-3.57) K/mm3 [place] # (Auto) (0.30-0.82) K/mm3 Eos # (Auto) (0.04-0.54) K/mm3 Baso # (Auto) (0.01-0.08) K/mm3 Sodium (136-145) mEq/L Potassium (3.5-5.1) mEq/L Chloride (98-107) mEq/L Carbon Dioxide (21-32) mEq/L Anion Gap (5-15) BUN (7-18) mg/dL Creatinine (0.7-1.3) mg/dL Est Cr Clr Drug Dosing mL/min Estimated GFR (MDRD) (>60) mL/min BUN/Creatinine Ratio (14-18) Glucose (74-106) mg/dL POC Glucose 148 H 139 H 151 H (70-105) mg/dL Calcium (8.5-10.1) mg/dL 10/12/19 10/12/19 Range/Units 06:33 06:33 WBC 8.67 (4.23-9.07) K/mm3 RBC 4.79 (4.63-6.08) M/mm3 Hgb 15.1 (13.7-17.5) gm/dl Hct 44.1 (40.1-51.0) % MCV 92.1 (79.0-92.2) fl MCH 31.5 (25.7-32.2) pg MCHC 34.2 (32.2-35.5) g/dl RDW Std Deviation 42.3 (35.1-43.9) fL Plt Count 297 (163-337) K/mm3 MPV 9.8 (9.4-12.3) fl Neut % (Auto) 71.3 H (34.0-67.9) % Lymph % (Auto) 15.9 L (21.8-53.1) % [place] % (Auto) 10.0 (5.3-12.2) % Eos % (Auto) 2.4 (0.8-7.0) Baso % (Auto) 0.2 (0.1-1.2) % Neut # (Auto) 6.17 H (1.78-5.38) K/mm3 Lymph # (Auto) 1.38 (1.32-3.57) K/mm3 [place] # (Auto) 0.87 H (0.30-0.82) K/mm3 Eos # (Auto) 0.21 (0.04-0.54) K/mm3 Baso # (Auto) 0.02 (0.01-0.08) K/mm3 Sodium 139 (136-145) mEq/L Potassium 3.8 (3.5-5.1) mEq/L Chloride 102 (98-107) mEq/L Carbon Dioxide 32 (21-32) mEq/L Anion Gap 8.8 (5-15) BUN 11 (7-18) mg/dL Creatinine 1.1 (0.7-1.3) mg/dL Est Cr Clr Drug Dosing 71.78 mL/min Estimated GFR (MDRD) > 60 (>60) mL/min BUN/Creatinine Ratio 10.0 L (14-18) Glucose 174 H (74-106) mg/dL POC Glucose (70-105) mg/dL Calcium 8.4 L (8.5-10.1) mg/dL Med Orders - Current: Current Medications Amlodipine Besylate (Norvasc) 10 mg PO DAILY COUNTS INCLUDE 234 BEDS AT THE [facility] Last Admin: 10/12/19 08:52 Dose: 10 mg Documented by: Aspirin (Halfprin) 81 mg PO DAILY COUNTS INCLUDE 234 BEDS AT THE [facility] Last Admin: 10/12/19 08:52 Dose: 81 mg Documented by: Cholecalciferol (Vitamin D3) 50 mcg PO DAILY COUNTS INCLUDE 234 BEDS AT THE [facility] Last Admin: 10/12/19 08:51 Dose: 50 mcg Documented by: Docusate Sodium (Colace) 100 mg PO BID PRN PRN Reason: Constipation Last Admin: 10/12/19 06:13 Dose: 100 mg Documented by: Heparin Sodium (Porcine) (Heparin Sodium) 5,000 units SUBCUT Q8H COUNTS INCLUDE 234 BEDS AT THE [facility] Last Admin: 10/12/19 08:51 Dose: 5,000 units Documented by: Hydromorphone HCl (Dilaudid) 0.5 mg IVPUSH Q3H PRN PRN Reason: Pain (severe 7-10) Last Admin: 10/11/19 19:46 Dose: 0.5 mg Documented by: Lactated Ringer's (Ringers, Lactated) 1,000 mls @ 75 mls/hr IV ASDIRECTED COUNTS INCLUDE 234 BEDS AT THE [facility] Last Admin: 10/12/19 05:56 Dose: 125 mls/hr Documented by: Metronidazole 500 mg/ Premix 100 mls @ 100 mls/hr IV Q8H COUNTS INCLUDE 234 BEDS AT THE [facility] Stop: 10/14/19 22:01 Last Admin: 10/12/19 05:54 Dose: 100 mls/hr Documented by: Levofloxacin/Dextrose 500 mg/ (Premix) 100 mls @ 100 mls/hr IV Q24H COUNTS INCLUDE 234 BEDS AT THE [facility] Stop: 10/14/19 22:01 Last Admin: 10/11/19 21:01 Dose: 100 mls/hr Documented by: Lisinopril (Prinivil) 20 mg PO DAILY COUNTS INCLUDE 234 BEDS AT THE [facility] Last Admin: 10/12/19 08:52 Dose: 20 mg Documented by: Rosuvastatin Calcium (Crestor) 10 mg PO DAILY COUNTS INCLUDE 234 BEDS AT THE [facility] Last Admin: 10/12/19 08:52 Dose: 10 mg Documented by: Discontinued Medications Glipizide (Glucotrol Xl) 10 mg PO DAILY COUNTS INCLUDE 234 BEDS AT THE [facility] Glipizide (Glucotrol Xl) 10 mg PO DAILY COUNTS INCLUDE 234 BEDS AT THE [facility] Glipizide (Glucotrol Xl) 10 mg PO DAILY COUNTS INCLUDE 234 BEDS AT THE [facility] Hydromorphone HCl (Dilaudid) 1 mg IVPUSH ONETIME ONE Stop: 10/10/19 23:17 Last Admin: 10/10/19 23:25 Dose: 1 mg Documented by: Hydromorphone HCl (Dilaudid) 1 mg IVPUSH ONETIME ONE Stop: 10/11/19 01:39 Last Admin: 10/11/19 01:56 Dose: 1 mg Documented by: Hydromorphone HCl (Dilaudid) 1 mg IVPUSH ONETIME ONE Stop: 10/11/19 06:28 Last Admin: 10/11/19 06:44 Dose: 1 mg Documented by: Ertapenem 1 gm/ Sodium (Chloride) 50 mls @ 100 mls/hr IV ONETIME ONE Stop: 10/11/19 02:09 Last Admin: 10/11/19 01:53 Dose: 100 mls/hr Documented by: Lorazepam (Ativan) 0.5 mg IVPUSH ONETIME ONE Stop: 10/11/19 01:39 Last Admin: 10/11/19 01:54 Dose: 0.5 mg Documented by: Ondansetron HCl (Zofran) 4 mg IVPUSH ONETIME ONE Stop: 10/10/19 23:17 Last Admin: 10/10/19 23:24 Dose: 4 mg Documented by: Ondansetron HCl (Zofran) 4 mg IVPUSH ONETIME ONE Stop: 10/11/19 06:28 Last Admin: 10/11/19 06:44 Dose: 4 mg Documented by: Ondansetron HCl (Zofran Odt) 4 mg PO Q4H PRN PRN Reason: nausea, able to take PO - Exam General: Alert, Oriented, Cooperative Lungs: Clear to Auscultation, Normal Respiratory Effort Cardiovascular: Regular Rate, Regular Rhythm, No Murmurs GI/Abdominal Exam: Soft, No Organomegaly, No Distention, No Mass, Tender (RLQ) Sepsis Event Note - Evaluation Sepsis Screening Result: No Definite Risk - Focused Exam Vital Signs: Vital Signs Temp Pulse Resp BP Pulse Ox 10/12/19 11:37 98.2 F 72 20 135/94 H 95 10/12/19 08:52 131/89 10/12/19 07:47 98.2 F 69 20 131/89 93 L 10/12/19 03:17 99.0 F 70 20 135/90 95 10/12/19 00:56 98.2 F 62 18 125/79 94 L Date Exam was Performed: 10/12/19 Time Exam was Performed: 12:25 - Problem List Review Problem List Initiated/Reviewed/Updated: No - My Orders Last 24 Hours: My Active Orders 10/11/19 12:00 Aspirin [Halfprin] 81 mg PO DAILY Cholecalciferol (Vitamin D3) [Vitamin D3] 50 mcg PO DAILY Rosuvastatin [Crestor] 10 mg PO DAILY amLODIPine [Norvasc] 10 mg PO DAILY lisinopriL [Prinivil] 20 mg PO DAILY 10/11/19 22:00 Levofloxacin/Dextrose 5%-Water [Levaquin in D5W 500 MG/100 ML] 500 mg Premix Bag 1 bag IV Q24H metroNIDAZOLE/Normal Saline [Flagyl 500 MG in NS 100 ML] 500 mg Premix Bag 1 bag IV Q8H 10/12/19 07:50 Glucose Management Sub Q Reflex [OM.PC] PER UNIT ROUTINE 10/12/19 Lunch Clear Liquid Diet [DIET] 10/13/19 05:11 CBC WITH AUTO DIFF [HEME] AM 10/13/19 07:50 Glucose Management Sub Q Reflex [OM.PC] PER UNIT ROUTINE 10/13/19 08:00 BASIC METABOLIC PANEL,BMP [CHEM] DAILY 10/14/19 05:11 CBC WITH AUTO DIFF [HEME] AM 10/14/19 07:50 Glucose Management Sub Q Reflex [OM.PC] PER UNIT ROUTINE 10/15/19 07:50 Glucose Management Sub Q Reflex [OM.PC] PER UNIT ROUTINE 10/16/19 07:50 Glucose Management Sub Q Reflex [OM.PC] PER UNIT ROUTINE 10/17/19 07:50 Glucose Management Sub Q Reflex [OM.PC] PER UNIT ROUTINE 10/18/19 07:50 Glucose Management Sub Q Reflex [OM.PC] PER UNIT ROUTINE 10/19/19 07:50 Glucose Management Sub Q Reflex [OM.PC] PER UNIT ROUTINE 10/20/19 07:50 Glucose Management Sub Q Reflex [OM.PC] PER UNIT ROUTINE - Assessment Assessment:: 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 WBC normal now. VSS - Plan Plan:: patient has focal RLQ pain post colonoscopy. No evidence of perforation on CT scan. 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 Will admit for bowel rest, IV hydration and IV abx and follow him clinically. Plan - continue bowel rest, hydration and IV antibiotics. WBC is normal now - Will monitor the pain - start sips of clears today - IVF to 75 cc/hr
[2019-10-12] MEDS: Levofloxacin/Dextrose 5%-Water 500 MG in Premix Bag 1 BAG IV SCH (21:36)
[2019-10-13] MEDS: Heparin Sodium 5,000 Units/ML Vial SUBCUT SCH ×4 (00:17→23:00)
[2019-10-13] MEDS: Lactated Ringers 1,000 ML IV SCH (04:02)
[2019-10-13] MEDS: metroNIDAZOLE/Normal Saline 500 MG in Premix Bag 1 BAG IV SCH (06:00)
[2019-10-13] MEDS: Cholecalciferol (Vitamin D3) 25 MCG Tab PO SCH (09:09)
[2019-10-13] MEDS: Rosuvastatin 10 MG Tab PO SCH (09:09)
[2019-10-13] MEDS: Aspirin 81 MG Tab.EC PO SCH (09:09)
[2019-10-13] MEDS: Lisinopril 20 MG Tab PO SCH (09:11)
[2019-10-13] MEDS: amLODIPine 10 MG Tab PO SCH (09:12)
[2019-10-13] MEDS ORDERED: Levofloxacin 500 MG Tab PO ONE (09:15)
[2019-10-13] MEDS ORDERED: Levofloxacin 500 MG Tab PO SCH (09:15)
--- NOTE | 2019-10-13 09:44 | PCM.PN ---
- General Info Date of Service: 10/13/19 Admission Dx/Problem (Free Text): Post-polypectomy syndrome Subjective Update: Patient is stable. still has right sided abdominal pain but this is improving. He passed flatus and had 2 BMs yesterday. No fevers, or chills. VSS. WBC remains normal. Functional Status: Reports: Pain Controlled, Tolerating Diet (cld), Urinating Pain Score: 3 - Review of Systems General: Reports: No Symptoms HEENT: Reports: No Symptoms Pulmonary: Reports: No Symptoms Cardiovascular: Reports: No Symptoms Gastrointestinal: Reports: Abdominal Pain Genitourinary: Reports: No Symptoms Musculoskeletal: Reports: No Symptoms Skin: Reports: No Symptoms Neurological: Reports: No Symptoms - Patient Data Vitals - Most Recent: Last Vital Signs Temp 98.0 F 10/13/19 07:53 Pulse 63 10/13/19 07:53 Resp 16 10/13/19 07:53 BP 154/97 H 10/13/19 09:12 Pulse Ox 95 10/13/19 07:53 Weight - Most Recent: 100.698 kg I&O - Last 24 Hours: Intake & Output 10/12/19 10/13/19 10/13/19 22:59 06:59 14:59 Intake Total 1992 1500 Output Total 2400 2800 Balance -407 -1300 Lab Results Last 24 Hours: Laboratory Results - last 24 hr 10/12/19 10/12/19 10/12/19 Range/Units 12:29 17:59 21:46 WBC (4.23-9.07) K/mm3 RBC (4.63-6.08) M/mm3 Hgb (13.7-17.5) gm/dl Hct (40.1-51.0) % MCV (79.0-92.2) fl MCH (25.7-32.2) pg MCHC (32.2-35.5) g/dl RDW Std Deviation (35.1-43.9) fL Plt Count (163-337) K/mm3 MPV (9.4-12.3) fl Neut % (Auto) (34.0-67.9) % Lymph % (Auto) (21.8-53.1) % Tillman % (Auto) (5.3-12.2) % Eos % (Auto) (0.8-7.0) Baso % (Auto) (0.1-1.2) % Neut # (Auto) (1.78-5.38) K/mm3 Lymph # (Auto) (1.32-3.57) K/mm3 Tillman # (Auto) (0.30-0.82) K/mm3 Eos # (Auto) (0.04-0.54) K/mm3 Baso # (Auto) (0.01-0.08) K/mm3 Sodium (136-145) mEq/L Potassium (3.5-5.1) mEq/L Chloride (98-107) mEq/L Carbon Dioxide (21-32) mEq/L Anion Gap (5-15) BUN (7-18) mg/dL Creatinine (0.7-1.3) mg/dL Est Cr Clr Drug Dosing mL/min Estimated GFR (MDRD) (>60) mL/min BUN/Creatinine Ratio (14-18) Glucose (74-106) mg/dL POC Glucose 172 H 136 H 154 H (70-105) mg/dL Calcium (8.5-10.1) mg/dL 10/13/19 10/13/19 10/13/19 Range/Units 05:34 05:34 06:03 WBC 7.32 (4.23-9.07) K/mm3 RBC 4.77 (4.63-6.08) M/mm3 Hgb 15.2 (13.7-17.5) gm/dl Hct 43.3 (40.1-51.0) % MCV 90.8 (79.0-92.2) fl MCH 31.9 (25.7-32.2) pg MCHC 35.1 (32.2-35.5) g/dl RDW Std Deviation 41.8 (35.1-43.9) fL Plt Count 294 (163-337) K/mm3 MPV 10.2 (9.4-12.3) fl Neut % (Auto) 65.5 (34.0-67.9) % Lymph % (Auto) 20.2 L (21.8-53.1) % Tillman % (Auto) 10.5 (5.3-12.2) % Eos % (Auto) 3.1 (0.8-7.0) Baso % (Auto) 0.3 (0.1-1.2) % Neut # (Auto) 4.79 (1.78-5.38) K/mm3 Lymph # (Auto) 1.48 (1.32-3.57) K/mm3 Tillman # (Auto) 0.77 (0.30-0.82) K/mm3 Eos # (Auto) 0.23 (0.04-0.54) K/mm3 Baso # (Auto) 0.02 (0.01-0.08) K/mm3 Sodium 141 (136-145) mEq/L Potassium 3.7 (3.5-5.1) mEq/L Chloride 104 (98-107) mEq/L Carbon Dioxide 30 (21-32) mEq/L Anion Gap 10.7 (5-15) BUN 9 (7-18) mg/dL Creatinine 1.0 (0.7-1.3) mg/dL Est Cr Clr Drug Dosing 78.95 mL/min Estimated GFR (MDRD) > 60 (>60) mL/min BUN/Creatinine Ratio 9.0 L (14-18) Glucose 164 H (74-106) mg/dL POC Glucose 165 H (70-105) mg/dL Calcium 8.6 (8.5-10.1) mg/dL Med Orders - Current: Current Medications Amlodipine Besylate (Norvasc) 10 mg PO DAILY [facility] Last Admin: 10/13/19 09:12 Dose: 10 mg Documented by: Aspirin (Halfprin) 81 mg PO DAILY [facility] Last Admin: 10/13/19 09:09 Dose: 81 mg Documented by: Cholecalciferol (Vitamin D3) 50 mcg PO DAILY [facility] Last Admin: 10/13/19 09:09 Dose: 50 mcg Documented by: Docusate Sodium (Colace) 100 mg PO BID PRN PRN Reason: Constipation Last Admin: 10/12/19 06:13 Dose: 100 mg Documented by: Heparin Sodium (Porcine) (Heparin Sodium) 5,000 units SUBCUT Q8H [facility] Last Admin: 10/13/19 09:01 Dose: 5,000 units Documented by: Hydromorphone HCl (Dilaudid) 0.5 mg IVPUSH Q3H PRN PRN Reason: Pain (severe 7-10) Last Admin: 10/11/19 19:46 Dose: 0.5 mg Documented by: Levofloxacin (Levaquin) 500 mg PO DAILY [facility] Lisinopril (Prinivil) 20 mg PO DAILY [facility] Last Admin: 10/13/19 09:11 Dose: 20 mg Documented by: Metronidazole (Flagyl) 500 mg PO Q8H [facility] Rosuvastatin Calcium (Crestor) 10 mg PO DAILY [facility] Last Admin: 10/13/19 09:09 Dose: 10 mg Documented by: Discontinued Medications Glipizide (Glucotrol Xl) 10 mg PO DAILY [facility] Glipizide (Glucotrol Xl) 10 mg PO DAILY [facility] Glipizide (Glucotrol Xl) 10 mg PO DAILY [facility] Last Admin: 10/12/19 13:03 Dose: Not Given Documented by: Hydromorphone HCl (Dilaudid) 1 mg IVPUSH ONETIME ONE Stop: 10/10/19 23:17 Last Admin: 10/10/19 23:25 Dose: 1 mg Documented by: Hydromorphone HCl (Dilaudid) 1 mg IVPUSH ONETIME ONE Stop: 10/11/19 01:39 Last Admin: 10/11/19 01:56 Dose: 1 mg Documented by: Hydromorphone HCl (Dilaudid) 1 mg IVPUSH ONETIME ONE Stop: 10/11/19 06:28 Last Admin: 10/11/19 06:44 Dose: 1 mg Documented by: Lactated Ringer's (Ringers, Lactated) 1,000 mls @ 75 mls/hr IV ASDIRECTED [facility] Last Admin: 10/12/19 05:56 Dose: 125 mls/hr Documented by: Ertapenem 1 gm/ Sodium (Chloride) 50 mls @ 100 mls/hr IV ONETIME ONE Stop: 10/11/19 02:09 Last Admin: 10/11/19 01:53 Dose: 100 mls/hr Documented by: Metronidazole 500 mg/ Premix 100 mls @ 100 mls/hr IV Q8H [facility] Stop: 10/14/19 22:01 Last Admin: 10/13/19 06:00 Dose: 100 mls/hr Documented by: Levofloxacin/Dextrose 500 mg/ (Premix) 100 mls @ 100 mls/hr IV Q24H [facility] Stop: 10/14/19 22:01 Last Admin: 10/12/19 21:36 Dose: 100 mls/hr Documented by: Lactated Ringer's (Ringers, Lactated) 1,000 mls @ 75 mls/hr IV ASDIRECTED [facility] Last Admin: 10/13/19 04:02 Dose: 75 mls/hr Documented by: Levofloxacin (Levaquin) 500 mg PO Q24H [facility] Levofloxacin (Levaquin) 500 mg PO ONETIME ONE Stop: 10/13/19 09:16 Last Admin: 10/13/19 09:26 Dose: 500 mg Documented by: Lorazepam (Ativan) 0.5 mg IVPUSH ONETIME ONE Stop: 10/11/19 01:39 Last Admin: 10/11/19 01:54 Dose: 0.5 mg Documented by: Ondansetron HCl (Zofran) 4 mg IVPUSH ONETIME ONE Stop: 10/10/19 23:17 Last Admin: 10/10/19 23:24 Dose: 4 mg Documented by: Ondansetron HCl (Zofran) 4 mg IVPUSH ONETIME ONE Stop: 10/11/19 06:28 Last Admin: 10/11/19 06:44 Dose: 4 mg Documented by: Ondansetron HCl (Zofran Odt) 4 mg PO Q4H PRN PRN Reason: nausea, able to take PO - Exam General: Alert, Oriented, Cooperative Lungs: Clear to Auscultation, Normal Respiratory Effort Cardiovascular: Regular Rate, Regular Rhythm, No Murmurs GI/Abdominal Exam: Soft, No Organomegaly, No Distention, No Mass, Tender (RLQ) Sepsis Event Note - Evaluation Sepsis Screening Result: No Definite Risk - Focused Exam Vital Signs: Vital Signs Temp Temp Pulse Pulse Resp BP BP 10/13/19 09:12 154/97 H 10/13/19 09:11 154/97 H 10/13/19 07:53 98.0 F 63 16 124/102 H 10/13/19 04:08 130/84 10/13/19 04:06 98.2 F 73 18 10/13/19 00:21 98.1 F 73 16 143/89 H 10/12/19 21:43 123/95 H Pulse Ox 10/13/19 09:12 10/13/19 09:11 10/13/19 07:53 95 10/13/19 04:08 08/01/20 04:06 93 L 10/13/19 00:21 92 L 10/12/19 21:43 Date Exam was Performed: 10/13/19 Time Exam was Performed: 09:38 - Problem List Review Problem List Initiated/Reviewed/Updated: No - My Orders Last 24 Hours: My Active Orders 10/13/19 07:50 Glucose Management Sub Q Reflex [OM.PC] PER UNIT ROUTINE 10/13/19 14:00 metroNIDAZOLE [Flagyl] 500 mg PO Q8H 10/14/19 05:11 CBC WITH AUTO DIFF [HEME] AM 10/14/19 07:50 Glucose Management Sub Q Reflex [OM.PC] PER UNIT ROUTINE 10/14/19 09:00 levoFLOXacin [Levaquin] 500 mg PO DAILY 10/15/19 07:50 Glucose Management Sub Q Reflex [OM.PC] PER UNIT ROUTINE 10/16/19 07:50 Glucose Management Sub Q Reflex [OM.PC] PER UNIT ROUTINE 10/17/19 07:50 Glucose Management Sub Q Reflex [OM.PC] PER UNIT ROUTINE 10/18/19 07:50 Glucose Management Sub Q Reflex [OM.PC] PER UNIT ROUTINE 10/19/19 07:50 Glucose Management Sub Q Reflex [OM.PC] PER UNIT ROUTINE 10/20/19 07:50 Glucose Management Sub Q Reflex [OM.PC] PER UNIT ROUTINE - Assessment Assessment:: 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 WBC remains normal. VSS - Plan Plan:: patient has focal RLQ pain post colonoscopy. No evidence of perforation on CT scan. 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 Progressing well. Plan - switch abx to PO - regular diet today - dc IVF - will monitor him today
[2019-10-13] MEDS: metroNIDAZOLE 500 MG Tab PO SCH ×2 (13:58→22:55)
[2019-10-14] MEDS: metroNIDAZOLE 500 MG Tab PO SCH (06:03)
[2019-10-14] MEDS: Heparin Sodium 5,000 Units/ML Vial SUBCUT SCH (08:15)
[2019-10-14] MEDS: Cholecalciferol (Vitamin D3) 25 MCG Tab PO SCH (08:16)
[2019-10-14] MEDS: Lisinopril 20 MG Tab PO SCH (08:17)
[2019-10-14] MEDS: Rosuvastatin 10 MG Tab PO SCH (08:17)
[2019-10-14] MEDS: Aspirin 81 MG Tab.EC PO SCH (08:19)
[2019-10-14] MEDS: amLODIPine 10 MG Tab PO SCH (08:19)
--- NOTE | 2019-10-14 08:33 | PCM.DCSUM1 ---
Discharge Summary - Hospital Course Free Text/Narrative:: Patient has post polypectomy syndrome. Was admitted for bowel rest, IV abx and hydration. Progressed well. Will be discharged to home on oral medications. Diagnosis: Stroke: No - Discharge Data Discharge Date: 10/14/19 Discharge Disposition: Home, Self-Care 01 Condition: Good - Referral to Home Health Primary Care Physician: PCP Not In Area - Patient Instructions Diet: Heart Healthy Diet Activity: As Tolerated Driving: May Drive Today (as long as no opioid pain medications in 24 hrs) Showering/Bathing: May Shower Notify Provider of: Fever, Increased Pain, Swelling and Redness, Nausea and/or Vomiting - Discharge Plan *PRESCRIPTION DRUG MONITORING PROGRAM REVIEWED*: Not Applicable *COPY OF PRESCRIPTION DRUG MONITORING REPORT IN PATIENT [place]ENNA[place]: Not Applicable Prescriptions/Med Rec: metroNIDAZOLE [Flagyl] 500 mg PO Q8H 5 Days #15 tablet levoFLOXacin [Levaquin] 500 mg PO DAILY 5 Days #5 tablet Home Medications: Home Meds Aspirin [Aspir 81] 81 mg PO DAILY 10/09/19 [History] FLUoxetine [PROzac] 10 mg PO DAILY 10/09/19 [History] amLODIPine Besylate [Norvasc] 10 mg PO DAILY 10/09/19 [History] atorvaSTATin [Lipitor] 40 mg PO DAILY 10/09/19 [History] glipiZIDE [Glipizide Xl] 10 mg PO DAILY 10/09/19 [History] lisinopriL [Lisinopril] 20 mg PO DAILY 10/09/19 [History] metFORMIN [Glucophage] 1,000 mg PO DAILY 10/09/19 [History] Cholecalciferol (Vitamin D3) [Vitamin D3] 2,000 units PO DAILY 10/11/19 [History] levoFLOXacin [Levaquin] 500 mg PO DAILY 5 Days #5 tablet 10/14/19 [Rx] metroNIDAZOLE [Flagyl] 500 mg PO Q8H 5 Days #15 tablet 10/14/19 [Rx] Oxygen Therapy Mode: Room Air Patient Handouts: Type 2 Diabetes Mellitus, Diagnosis, Adult, Colon Polyps Forms: ED Department Discharge Referrals: Shaneka Damico MD [Physician] - - Discharge Summary/Plan Comment DC Time >30 min.: No - General Info Date of Service: 10/14/19 Admission Dx/Problem (Free Text: Post-polypectomy syndrome Subjective Update: Doing better today. Pain is improved. Tolerating diet and able to ambulate. Can go home with PO antibiotics. Functional Status: Reports: Pain Controlled, Tolerating Diet, Ambulating, Urinating - Review of Systems General: Reports: No Symptoms HEENT: Reports: No Symptoms Pulmonary: Reports: No Symptoms Cardiovascular: Reports: No Symptoms Gastrointestinal: Reports: Abdominal Pain Genitourinary: Reports: No Symptoms Musculoskeletal: Reports: No Symptoms Skin: Reports: No Symptoms Neurological: Reports: No Symptoms - Patient Data Vitals - Most Recent: Last Vital Signs Temp 97.6 F 10/14/19 07:54 Pulse 72 10/14/19 07:54 Resp 20 10/14/19 05:01 BP 137/102 H 10/14/19 08:19 Pulse Ox 94 L 10/14/19 07:54 Weight - Most Recent: 100.471 kg I&O - Last 24 hours: Intake & Output 10/13/19 10/14/19 10/14/19 22:59 06:59 14:59 Intake Total 1758 500 Output Total 1400 1300 Balance 358 -800 Lab Results - Last 24 hrs: Laboratory Results - last 24 hr 10/13/19 10/13/19 10/13/19 Range/Units 12:27 17:00 23:11 WBC (4.23-9.07) K/mm3 RBC (4.63-6.08) M/mm3 Hgb (13.7-17.5) gm/dl Hct (40.1-51.0) % MCV (79.0-92.2) fl MCH (25.7-32.2) pg MCHC (32.2-35.5) g/dl RDW Std Deviation (35.1-43.9) fL Plt Count (163-337) K/mm3 MPV (9.4-12.3) fl Neut % (Auto) (34.0-67.9) % Lymph % (Auto) (21.8-53.1) % Gilmer % (Auto) (5.3-12.2) % Eos % (Auto) (0.8-7.0) Baso % (Auto) (0.1-1.2) % Neut # (Auto) (1.78-5.38) K/mm3 Lymph # (Auto) (1.32-3.57) K/mm3 Gilmer # (Auto) (0.30-0.82) K/mm3 Eos # (Auto) (0.04-0.54) K/mm3 Baso # (Auto) (0.01-0.08) K/mm3 POC Glucose 184 H 134 H 196 H (70-105) mg/dL 10/14/19 10/14/19 Range/Units 05:26 06:02 WBC 7.51 (4.23-9.07) K/mm3 RBC 4.92 (4.63-6.08) M/mm3 Hgb 15.4 (13.7-17.5) gm/dl Hct 44.4 (40.1-51.0) % MCV 90.2 (79.0-92.2) fl MCH 31.3 (25.7-32.2) pg MCHC 34.7 (32.2-35.5) g/dl RDW Std Deviation 41.4 (35.1-43.9) fL Plt Count 334 (163-337) K/mm3 MPV 10.3 (9.4-12.3) fl Neut % (Auto) 64.2 (34.0-67.9) % Lymph % (Auto) 21.6 L (21.8-53.1) % Gilmer % (Auto) 10.7 (5.3-12.2) % Eos % (Auto) 3.1 (0.8-7.0) Baso % (Auto) 0.1 (0.1-1.2) % Neut # (Auto) 4.83 (1.78-5.38) K/mm3 Lymph # (Auto) 1.62 (1.32-3.57) K/mm3 Gilmer # (Auto) 0.80 (0.30-0.82) K/mm3 Eos # (Auto) 0.23 (0.04-0.54) K/mm3 Baso # (Auto) 0.01 (0.01-0.08) K/mm3 POC Glucose 180 H (70-105) mg/dL Med Orders - Current: Current Medications Amlodipine Besylate (Norvasc) 10 mg PO DAILY [facility] Last Admin: 10/14/19 08:19 Dose: 10 mg Documented by: Aspirin (Halfprin) 81 mg PO DAILY [facility] Last Admin: 10/14/19 08:19 Dose: 81 mg Documented by: Cholecalciferol (Vitamin D3) 50 mcg PO DAILY [facility] Last Admin: 10/14/19 08:16 Dose: 50 mcg Documented by: Docusate Sodium (Colace) 100 mg PO BID PRN PRN Reason: Constipation Last Admin: 10/12/19 06:13 Dose: 100 mg Documented by: Heparin Sodium (Porcine) (Heparin Sodium) 5,000 units SUBCUT Q8H [facility] Last Admin: 10/14/19 08:15 Dose: Not Given Documented by: Hydromorphone HCl (Dilaudid) 0.5 mg IVPUSH Q3H PRN PRN Reason: Pain (severe 7-10) Last Admin: 10/11/19 19:46 Dose: 0.5 mg Documented by: Levofloxacin (Levaquin) 500 mg PO DAILY [facility] Last Admin: 10/14/19 08:19 Dose: 500 mg Documented by: Lisinopril (Prinivil) 20 mg PO DAILY [facility] Last Admin: 10/14/19 08:17 Dose: 20 mg Documented by: Metronidazole (Flagyl) 500 mg PO Q8H [facility] Last Admin: 10/14/19 06:03 Dose: 500 mg Documented by: Rosuvastatin Calcium (Crestor) 10 mg PO DAILY [facility] Last Admin: 10/14/19 08:17 Dose: 10 mg Documented by: Discontinued Medications Glipizide (Glucotrol Xl) 10 mg PO DAILY [facility] Glipizide (Glucotrol Xl) 10 mg PO DAILY [facility] Glipizide (Glucotrol Xl) 10 mg PO DAILY [facility] Last Admin: 10/12/19 13:03 Dose: Not Given Documented by: Hydromorphone HCl (Dilaudid) 1 mg IVPUSH ONETIME ONE Stop: 10/10/19 23:17 Last Admin: 10/10/19 23:25 Dose: 1 mg Documented by: Hydromorphone HCl (Dilaudid) 1 mg IVPUSH ONETIME ONE Stop: 10/11/19 01:39 Last Admin: 10/11/19 01:56 Dose: 1 mg Documented by: Hydromorphone HCl (Dilaudid) 1 mg IVPUSH ONETIME ONE Stop: 10/11/19 06:28 Last Admin: 10/11/19 06:44 Dose: 1 mg Documented by: Lactated Ringer's (Ringers, Lactated) 1,000 mls @ 75 mls/hr IV ASDIRECTED [facility] Last Admin: 10/12/19 05:56 Dose: 125 mls/hr Documented by: Ertapenem 1 gm/ Sodium (Chloride) 50 mls @ 100 mls/hr IV ONETIME ONE Stop: 10/11/19 02:09 Last Admin: 10/11/19 01:53 Dose: 100 mls/hr Documented by: Metronidazole 500 mg/ Premix 100 mls @ 100 mls/hr IV Q8H [facility] Stop: 10/14/19 22:01 Last Admin: 10/13/19 06:00 Dose: 100 mls/hr Documented by: Levofloxacin/Dextrose 500 mg/ (Premix) 100 mls @ 100 mls/hr IV Q24H [facility] Stop: 10/14/19 22:01 Last Admin: 10/12/19 21:36 Dose: 100 mls/hr Documented by: Lactated Ringer's (Ringers, Lactated) 1,000 mls @ 75 mls/hr IV ASDIRECTED [facility] Last Admin: 10/13/19 04:02 Dose: 75 mls/hr Documented by: Levofloxacin (Levaquin) 500 mg PO Q24H [facility] Levofloxacin (Levaquin) 500 mg PO ONETIME ONE Stop: 10/13/19 09:16 Last Admin: 10/13/19 09:26 Dose: 500 mg Documented by: Lorazepam (Ativan) 0.5 mg IVPUSH ONETIME ONE Stop: 10/11/19 01:39 Last Admin: 10/11/19 01:54 Dose: 0.5 mg Documented by: Ondansetron HCl (Zofran) 4 mg IVPUSH ONETIME ONE Stop: 10/10/19 23:17 Last Admin: 10/10/19 23:24 Dose: 4 mg Documented by: Ondansetron HCl (Zofran) 4 mg IVPUSH ONETIME ONE Stop: 10/11/19 06:28 Last Admin: 10/11/19 06:44 Dose: 4 mg Documented by: Ondansetron HCl (Zofran Odt) 4 mg PO Q4H PRN PRN Reason: nausea, able to take PO - Exam General: Reports: Alert, Oriented, Cooperative Lungs: Reports: Clear to Auscultation, Normal Respiratory Effort Cardiovascular: Reports: Regular Rate, Regular Rhythm, No Murmurs GI/Abdominal Exam: Soft, No Organomegaly, No Distention, No Mass, Tender (RLQ)
[2019-10-14] MEDS ORDERED: Levofloxacin 500 MG Tab PO SCH (09:00)
== END 2019-10-14 11:30 | disposition home or self-care (01) | DRG 395 ==
LOC: JD.ED 22:31 → JD.MS 10-11 06:36 → OBSVTOIN 10-11 07:50
PROVIDERS: ADMIT Surgery; ATTEND Surgery
DX: R10.31 Right lower quadrant pain (principal); K80.20 Calculus of gallbladder without cholecystitis without obstruction; K91.89 Other postprocedural complications and disorders of digestive system; H54.7 Unspecified visual loss; E78.00 Pure hypercholesterolemia, unspecified; I10 Essential (primary) hypertension; G47.30 Sleep apnea, unspecified; K57.90 Diverticulosis of intestine, part unspecified, without perforation or abscess without bleeding; K21.9 Gastro-esophageal reflux disease without esophagitis; E11.9 Type 2 diabetes mellitus without complications; E03.9 Hypothyroidism, unspecified; F32.9 Major depressive disorder, single episode, unspecified; Z20.828 Contact with and (suspected) exposure to other viral communicable diseases; Z79.84 Long term (current) use of oral hypoglycemic drugs; Z79.899 Other long term (current) drug therapy; K44.9 Diaphragmatic hernia without obstruction or gangrene; R11.0 Nausea; Z98.890 Other specified postprocedural states; Z79.82 Long term (current) use of aspirin; Z11.59 Encounter for screening for other viral diseases
CPT/HCPCS: 36415 ×2; 74177; 80048; 80053; 83690; 85007 ×2; 85027 ×2; 86140 ×2; 87635; 96365; 96375; 99285; J1170 ×3; J1335; J2060; J2405 ×2; J7050; J7120; 82962; 85025; A9270-GY; J1644; J1956; J3490; U0002

== ENCOUNTER 2020-07-27 17:39 | Emergency (ER) | payer OTHER ==
--- NOTE | 2020-07-27 19:20 | EDM.PDOC ---
ED HPI GENERAL MEDICAL PROBLEM - General Chief Complaint: Upper Extremity Injury/Pain Stated Complaint: RT ARM PAIN Time Seen by Provider: 07/27/20 19:20 - History of Present Illness INITIAL COMMENTS - FREE TEXT/NARRATIVE: 55-year-old gentleman presents the emergency room with right forearm pain. This is been getting worse over the last couple of weeks. 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 He is right-hand dominant. He denies any specific injuries. He has not tried anything for this discomfort. Patient is currently treated with Metformin for diabetes he is also on blood pressure medications. Please refer to his medication list. The pain seems to be worse when he uses his hand and does stuff with it. Has not a shooting type pain is a dull achy pain. This pain is been bothering him for the last several days but has been coming on over the last couple of weeks. Right Arm Pain Score (Numeric/FACES): 6 - Related Data Allergies Allergy/AdvReac Type Severity Reaction Status Date / Time No Known Allergies Allergy Verified 07/27/20 19:02 Home Meds: Home Meds Aspirin [Aspir 81] 81 mg PO DAILY 10/09/19 [History] amLODIPine Besylate [Norvasc] 10 mg PO DAILY 10/09/19 [History] atorvaSTATin [Lipitor] 80 mg PO DAILY 10/09/19 [History] glipiZIDE [Glipizide Xl] 10 mg PO DAILY 10/09/19 [History] lisinopriL [Lisinopril] 40 mg PO DAILY 10/09/19 [History] metFORMIN [Glucophage] 1,000 mg PO DAILY 10/09/19 [History] Cholecalciferol (Vitamin D3) [Vitamin D3] 2,000 units PO DAILY 10/11/19 [History] Alogliptin Benzoate [Alogliptin] 250 mg PO DAILY 07/27/20 [History] Past Medical History HEENT History: Reports: Impaired Vision Cardiovascular History: Reports: High Cholesterol, Hypertension, SOB on Exertion Respiratory History: Reports: Sleep Apnea, Other (See Below) Other Respiratory History: not using cpap or bipap therapy at this time Gastrointestinal History: Reports: Cholelithiasis, Diverticulosis Genitourinary History: Reports: None 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 Musculoskeletal History: Reports: None Neurological History: Reports: Migraines Psychiatric History: Reports: Depression, PTSD Endocrine/Metabolic History: Reports: Diabetes, Type II, Hypothyroidism Hematologic History: Reports: None Immunologic History: Reports: None Oncologic (Cancer) History: Reports: None Dermatologic History: Reports: None - Infectious Disease History Infectious Disease History: Reports: Chicken Pox - Past Surgical History Head Surgeries/Procedures: Reports: None HEENT Surgical History: Reports: Eye Surgery Cardiovascular Surgical History: Reports: None Respiratory Surgical History: Reports: None GI Surgical History: Reports: Other (See Below) Other GI Surgeries/Procedures: intestinal surgery--he states it was for colon surgery but unclear if he meant small bowel surgery. Male Surgical History: Reports: None Endocrine Surgical History: Reports: None Neurological Surgical History: Reports: None Musculoskeletal Surgical History: Reports: None Oncologic Surgical History: Reports: None Dermatological Surgical History: Reports: None Social & Family History - Family History Family Medical History: No Pertinent Family History - Tobacco Use Tobacco Use Status *Q: Never Tobacco User - Caffeine Use Caffeine Use: Reports: None - Recreational Drug Use Recreational Drug Use: No - Living Situation & Occupation Living situation: Reports: Single Occupation: Employed (Works in [employer] Review of Systems - Review of Systems Review Of Systems: See Below Constitutional: Reports: No Symptoms Ears: Reports: No Symptoms Nose: Reports: No Symptoms Mouth/Throat: Reports: No Symptoms Respiratory: Reports: No Symptoms Cardiovascular: Reports: No Symptoms GI/Abdominal: Reports: No Symptoms Genitourinary: Reports: No Symptoms Musculoskeletal: Reports: Other (See history of present illness) Skin: Reports: No Symptoms Neurological: Reports: No Symptoms Psychiatric: Reports: No Symptoms ED EXAM, GENERAL - Physical Exam Exam: See Below Exam Limited By: No Limitations General Appearance: Alert Head: Atraumatic, Normocephalic Respiratory/Chest: No Respiratory Distress, Lungs Clear, Normal Breath Sounds Cardiovascular: Normal Peripheral Pulses, Regular Rate, Rhythm, No Edema GI/Abdominal: Normal Bowel Sounds, Soft, Non-Tender Back Exam: Normal Inspection. No: CVA Tenderness (L), CVA Tenderness (R) Neurological: Alert, Oriented, Normal Cognition Skin Exam: Warm, Dry, Intact Course - Vital Signs Last Recorded V/S: Last Vital Signs Temp 36.8 C 07/27/20 18:34 Pulse 78 07/27/20 18:34 Resp 16 07/27/20 18:34 BP 149/110 H 07/27/20 18:34 Pulse Ox 94 L 07/27/20 18:34 - Orders/Labs/Meds Orders: Active Orders 24 hr Category Date Time Status Forearm 2V Rt [CR] Stat Exams 07/27/20 19:33 Ordered Wrist Comp Min 3V Rt [CR] Stat Exams 07/27/20 19:33 Ordered Durable Medical Equipment for Discharge [DME for Oth 07/27/20 20:40 Ordered Discharge] [COMM] Stat - Re-Assessments/Exams Free Text/Narrative Re-Assessment/Exam: 07/27/20 20:45 X-ray examination of the wrist and forearm were done that appear to be negative for acute fracture dislocation. The patient be placed in a wrist splint hopefully we can rest some areas and be able to isolate a little better where his pain is coming from down the road. The patient asked what he is going need to do and I am not entirely sure is what I explained to him he may need to see orthopedics have joint injections tendon injections or possibly go to physical therapy. Patient understands this patient will use Tylenol for discomfort with his diabetes and other risk factors to nonsteroidals and steroids. 07/27/20 20:52 Patient had the splint applied and actually he feels a lot better in place. Departure - Departure Time of Disposition: 20:47 Disposition: Home, Self-Care 01 Clinical Impression: Tendonitis of wrist, right - Discharge Information Referrals: Aviva Chaudhari, MAIL ORDER CLERK [Primary Care Provider] - Forms: ED Department Discharge Additional Instructions: Return to the emergency room with any questions problems or worsening symptoms. Follow-up in the clinic in 1 week for recheck. Wear the splint pretty much at all times you can take it off for bathing. Use Tylenol, or acetaminophen 650 mg every 4 hours while awake or 1000 mg every 6 hours while awake your maximum dose should not exceed 4000 mg in a 24-hour period. Sepsis Event Note (ED) - Evaluation Sepsis Screening Result: No Definite Risk - Focused Exam Vital Signs: Vital Signs Temp Pulse Resp BP Pulse Ox 07/27/20 18:34 36.8 C 78 16 149/110 H 94 L - My Orders Last 24 Hours: My Active Orders 07/27/20 19:33 Forearm 2V Rt [CR] Stat Wrist Comp Min 3V Rt [CR] Stat 07/27/20 20:40 Durable Medical Equipment for Discharge [DME for Discharge] [COMM] Stat - Assessment/Plan Last 24 Hours: My Active Orders 07/27/20 19:33 Forearm 2V Rt [CR] Stat Wrist Comp Min 3V Rt [CR] Stat 07/27/20 20:40 Durable Medical Equipment for Discharge [DME for Discharge] [COMM] Stat
--- NOTE | 2020-07-28 06:10 | CR ---
Right forearm: 2 views of the right forearm were obtained. Comparison: No previous study. Soft tissue swelling is seen. No acute fracture, dislocation or other bony abnormality is appreciated. Impression: 1. Mild soft tissue swelling. 2. No acute osseous finding is seen on 2 view right forearm study. Diagnostic code #2
--- NOTE | 2020-07-28 06:11 | CR ---
Right wrist: 4 views of the right wrist were obtained. Comparison: No previous wrist study is available. Joint spaces are maintained. No acute fracture, dislocation or other bony abnormality is appreciated. Impression: 1. No abnormality is appreciated on 4 view right wrist study. Diagnostic code #1
== END 2020-07-27 21:15 | disposition home or self-care (01) ==
LOC: JD.ED 17:39
DX: M77.8 Other enthesopathies, not elsewhere classified (principal); E78.00 Pure hypercholesterolemia, unspecified; I10 Essential (primary) hypertension; E11.9 Type 2 diabetes mellitus without complications; E03.9 Hypothyroidism, unspecified; Z79.82 Long term (current) use of aspirin; Z79.84 Long term (current) use of oral hypoglycemic drugs; Z79.899 Other long term (current) drug therapy
CPT/HCPCS: 73090-26-RT; 73090-RT; 73110-26-RT; 73110-RT; 99282; 99283-25